=== PATIENT | female | born 1930 | race Caucasian/White ===

== ENCOUNTER 2017-05-21 14:10 | Inpatient (IN) | payer MEDICARE, MEDICAID ==
[~2017-05-21] VITALS: Ht 147.3 cm; Wt 50.8 kg
[~2017-05-21 14:10] MED LIST: ATEN50TA7 PO; CALC-83 PO; DOCU250C7 PO; ERGO400C PO; FES300 PO; GABA600T PO; LEVE500T2 PO; MULT-64 PO; NAPR220T2 PO; PROT40T PO; TRAZ-151 PO; ZESTRIL PO; [UNRECOGNIZED DRUG - CODE] PO
[2017-05-21 14:19] VITALS: BP 170/86; PULSE 71; RESP 24; O2SAT 98
[2017-05-21 15:00] LABS: BASOPHILS % (AUTO) 0.3 % (0-3); EOSINOPHILS % (AUTO) 1.6 % (0-5); MONOCYTES % (AUTO) 10.5 % (4-12); Platelet Count 172 bil/L (150-400)
[2017-05-21] MEDS ORDERED: PYR50 PO (15:30)
[2017-05-21] MEDS ORDERED: OMEP20CA11 PO (15:30)
[2017-05-21] MEDS ORDERED: ATEN25TA PO (15:30)
[2017-05-21] MEDS ORDERED: BIOT10004 PO (15:30)
[2017-05-21] MEDS ORDERED: LOM PO (15:30)
[2017-05-21] MEDS ORDERED: CHOL10008 PO (15:30)
[2017-05-21] MEDS ORDERED: DICL100G26 TOPICAL (15:30)
[2017-05-21] MEDS ORDERED: ATOR20TA PO (15:30)
[2017-05-21] MEDS ORDERED: T2T PO (15:30)
[2017-05-21 15:48] LABS: APPEARANCE,URINE CLEAR (CLEAR,HAZY); COLOR,URINE YELLOW (YELLOW); OCCULT BLOOD,URINE TRACE (NEGATIVE); UROBILINOGEN,URINE NORMAL (NORMAL)
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
[2017-05-21] MEDS ORDERED: Piperacillin-Tazo 3.375 Gm Inj 3.375 GM in Dextrose 5% Minibag Plus 50 ML IV ONE (17:15)
[2017-05-21] MEDS ORDERED: 0.9% Sodium Chloride 1,000 ML IV ONE (17:15)
[2017-05-21] MEDS ORDERED: Polyethylene Glycol (PEG) 17 Gm Powder PO PRN (17:35)
[2017-05-21] MEDS ORDERED: Alum-Mag Hydrox-Simeth 30 mL Suspension PO PRN (17:35)
[2017-05-21] MEDS ORDERED: Ondansetron 2 mg/mL 2 mL Inj IVPUSH PRN (17:35)
[2017-05-21 18:31] LABS: Magnesium 2.1 mg/dL (1.6-2.6)
[2017-05-21 19:30] VITALS: BP 179/93; PULSE 89; RESP 20; O2SAT 98
[2017-05-21 20:17] VITALS: BP 179/93; PULSE 89; RESP 20; O2SAT 98
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
[2017-05-21 20:28] VITALS: BP 185/103; PULSE 87; RESP 18; O2SAT 98
[2017-05-21 20:35] VITALS: PULSE 82
--- NOTE | 2017-05-21 21:26 | NUR ---
Admit note: Pt admitted from the ER via wheelchair. Ambulated to the bed with stand by assist. Alert and able to state "Celeste Timmons" and that birthday is in [birth year]. Any other questions pt states "I want out of here". Refused to put on hospital gown at this time. Continues to refuse IV access, aware. BP elevated, aware and is placing orders. Will hold staffs' hands and ask "Will you stay with me". Call light in reach and bed alarm is on for pt safety. Addendum: 05/21/17 at 2154 by JOSEPH AGUILAR RN Pt does report bilateral ear pain.
[2017-05-21] MEDS ORDERED: Lisinopril 40 Tablet PO SCH (21:30)
[2017-05-21] MEDS ORDERED: levoFLOXacin 750 mg Tablet PO SCH (22:00)
[2017-05-21] MEDS: 0.9% Sodium Chloride 1,000 ML IV SCH (22:36)
[2017-05-22] MEDS ORDERED: Piperacillin-Tazo 3.375 Gm Inj 3.375 GM in Dextrose 5% Minibag Plus 50 ML IV SCH (00:30)
[2017-05-22] MEDS: Heparin 5,000 Unit/mL Inj SUBQ SCH ×3 (00:30→16:04)
[2017-05-22 01:56] VITALS: BP 160/87; PULSE 71; RESP 18; O2SAT 100
[2017-05-22] MEDS: 0.9% Sodium Chloride 1,000 ML IV SCH (03:31)
[2017-05-22] MEDS ORDERED: TRAZ-115 PO (03:52)
[2017-05-22] MEDS ORDERED: LISI40TA PO (03:52)
--- NOTE | 2017-05-22 03:54 | NUR ---
Med Rec: Med rec incomplete. Pt unable to answer questions appropriately, no visitors with pt. This RN did update the expunged Lisinopril and expunged Trazadone as they were recently dispensed to pt, per external medication history.
[2017-05-22 05:49] VITALS: BP 195/66; PULSE 71; RESP 20; O2SAT 95
--- NOTE | 2017-05-22 06:53 | NUR ---
Contacts: RN attempted to call Cassi Sweeney listed under pt's contacts in the chart. Unable to contact her, voice mail for legal office on the number listed.
[2017-05-22 06:56] LABS: BASOPHILS % (AUTO) 0.2 % (0-3); EOSINOPHILS % (AUTO) 1.6 % (0-5); MONOCYTES % (AUTO) 14.4 % (4-12); Mean Corpuscular Hemoglobin 28.7 pg (27.0-35.0); NEUTROPHILS % (AUTO) 70.9 % (40-74); Platelet Count 176 bil/L (150-400)
--- NOTE | 2017-05-22 09:18 | PCM.PNMED ---
Subjective Date of Service May 22, 2017 Subjective Patient was able to answer some questions, denied burning, urinary frequency, urgency denied pain, eating breakfast okay, Exam Vital Signs Vital Sign - Last Date Time Temp Pulse Resp B/P Pulse Ox O2 Delivery O2 Flow Rate FiO2 05/22/17 05:49 37.0 71 20 195/66 95 Room Air Intake and Output 05/21/17 05/21/17 05/22/17 Cumulative From/Thru 15:00 23:00 07:00 05/21/17 19:23 - 05/22/17 05:50 Intake Total 20 ml 50 ml 70 ml Output Total 700 ml 700 ml Balance 20 ml -650 ml -630 ml Intake Oral 20 ml 50 ml 70 ml Output Urine Total 700 ml 700 ml Exam NAD, comfortably laying down on the bed no JVD, MMM, no LAD RRR, nl s1, s2 no mrg CTAB, no w,c S,ND,NT,normoactive BS+ warm, no edema, pulses 2/2 IVs and Medications Medications Reviewed: Medications were reviewed in detail Lab and Diagnostics Result Diagram: 05/22/1735 05/22/17 0635 Microbiology Urine culture pending. Blood cultures 2 pending. . 12-lead ECG EKG: Sinus rhythm, heart rate 79, normal axis, normal intervals, normal R-wave progression multiple PVCs, peaked T waves in leads V2 through V4, no pathological Q waves or acute ischemic changes such as ST elevation or depression. . Assessment & Plan Celeste Del Rosario is an 87-year-old female with a past medical history significant for dementia and seizure disorder who presented to [facility] emergency Department via police with confusion onset prior to arrival. 1. Acute urinary tract infection, present on admission. Active. UA strongly positive for UTI, presented with acute delirium secondary to UTI.UCX prelim grew GNR. started on Zosyn ED, switched to Levaquin, -continue levaquin for now, -awaits final culture 2.acute encephalopathy, likely secondary to UTI, underlying cognitive dysfunction, present on admission. Active. -improving as infection clears up - Unclear patient's baseline but there is a history of dementia. - Treat underlying cause. Chronic problems: 3. Developmentally delayed with dementia, present on admission. Stable. - Unclear patient's baseline functional level. - Continue to treat UTI as above. 4. Hypertension, present on admission. Stable. - Continue lisinopril 40 mg daily and atenolol 25 mg daily once medications have been verified. 5. GERD, present on admission. Stable. - Continue omeprazole 20 mg daily once medications have been verified. 6. Insomnia, present on admission. Stable. - Continue trazodone 50 mg daily at bedtime once medications have been verified. 7. Hyperlipidemia, present on admission. Stable. - Continue atorvastatin 20 mg daily at bedtime once medications have been verified. PRN antiemetics: Zofran and Maalox. PRN bowel regimen: Senna and MiraLAX. PRN analgesics: Tylenol. dispo: given patient's presumed poor baseline, likely need more support, 20/03 awaits PT eval as well VTE Prophylaxis: Sub-Q Heparin (Unfractionated) Resuscitation Status: CPR: Attempt Resuscitation Time spent 35min Cele Ruiz MD May 22, 2017 09:11
[2017-05-22] MEDS ORDERED: CALC-243 PO (12:17)
[2017-05-22] MEDS ORDERED: MULT-1018 PO (12:19)
[2017-05-22] MEDS ORDERED: Haloperidol 5 mg/mL Inj IV PRN (13:30)
[2017-05-22] MEDS ORDERED: Haloperidol 5 mg/mL Inj IVPUSH ONE (13:30)
[2017-05-22] MEDS: Pantoprazole 20 mg ER24 Tablet PO SCH (13:36)
[2017-05-22] MEDS: Calcium Carbonate (Oyster Shell) 500 mg Tablet PO SCH (13:36)
--- NOTE | 2017-05-22 14:04 | NUR ---
Haldol Patient alert to self, but not place or time. Patient stated she was leaving and was already dressed and putting on shoes. Nurse explained to patient she needed to stay at the hospital for antibiotics to get a little better before she can go home. Patient continued placing on her shoes and stating she was going to walk home. Charge nurse notified, service crew supervisor was called for a sitter with no response, and MD notified. MD ordered one time dose of IM Haldol. Patient was administered medication and called down and stated she would stay another day.
--- NOTE | 2017-05-22 14:58 | NUR ---
Social Work-initial assessment: Data:See initial assessment. Pt is a 87 y/o female who was admitted on 05/21/17 for acute delirium per H&P. Pt's insurance is [employer] and [employer] and PCP is KEITH Tai. EMR reviewed. SW attempted to meet with pt, but pt hard of hearing and unable to understand SW's questions. SW spoke with pt's CM Milka Mendez at [facility], updated clinicals faxed. Milka confirms pt has a caregiver Anju [phone] 69 hours a month. Pt lives alone and is independent at baseline. Pt has developmental delay and her guardian is Cassi Gleason, , SW left message for her. Pt does not drive and does not use any DME at baseline. Pt has no HH or SNF history. Pt has no termite treater care insurance or VA benefits. MD likely to order PT for tomorrow. SW provided pt with discharge planning checklist and encouraged a copy to be brought in. Anticipate pt's caregiver to provide transport home. SW will continue to follow. Assessment:Pt who is independent at baseline. Plan:Pt to discharge home when medically stable via POV. Pt to continue with [facility] caregiving at home. SW will continue to follow for needs. CHUN Scott Addendum: 05/22/17 at 1502 by CINDY TAYLOR SS Amended: Links added.
[2017-05-22 19:27] VITALS: BP 149/79; PULSE 63; RESP 18; O2SAT 97
[2017-05-23 00:05] VITALS: BP 131/75; PULSE 70; RESP 15; O2SAT 94
[2017-05-23] MEDS: Heparin 5,000 Unit/mL Inj SUBQ SCH ×3 (01:34→17:18)
[2017-05-23 03:49] VITALS: BP 138/78; PULSE 75; RESP 16; O2SAT 96
--- NOTE | 2017-05-23 05:08 | NUR ---
Abdominal pain, Activity: Pt reported abdominal discomfort x1, Tylenol was effective. Vic alarm remains activated for pt's safety. Up to the bathroom a couple times through the night, directable back to bed each time. Able to get a bit more sleep tonight.
[2017-05-23] MEDS: Pantoprazole 20 mg ER24 Tablet PO SCH (08:07)
[2017-05-23] MEDS: Calcium Carbonate (Oyster Shell) 500 mg Tablet PO SCH (08:08)
[2017-05-23] MEDS ORDERED: levoFLOXacin 750 mg Tablet PO SCH (08:30)
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
[2017-05-23 12:36] VITALS: BP 98/67; PULSE 55; RESP 18; O2SAT 99
[2017-05-23] MEDS: Amoxicillin-Clav 500-125 mg Tablet PO SCH (17:18)
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
[2017-05-23 20:29] VITALS: BP 119/69; PULSE 59; RESP 16; O2SAT 94
[2017-05-24 03:33] VITALS: BP 144/68; PULSE 57; RESP 16; O2SAT 93
[2017-05-24] MEDS: Amoxicillin-Clav 500-125 mg Tablet PO SCH ×2 (08:17→12:09)
[2017-05-24] MEDS: Pantoprazole 20 mg ER24 Tablet PO SCH (08:17)
[2017-05-24] MEDS: Heparin 5,000 Unit/mL Inj SUBQ SCH ×2 (08:18→08:33)
[2017-05-24 08:21] VITALS: BP 122/68; PULSE 57; RESP 16; O2SAT 96
[2017-05-24] MEDS: Calcium Carbonate (Oyster Shell) 500 mg Tablet PO SCH (08:30)
[2017-05-24] MEDS ORDERED: AMOX1TAB11 PO (10:13)
--- NOTE | 2017-05-24 11:19 | NUR ---
Social Work-readiness for discharge/multidisciplinary rounds : Data:EMR reviewed. Pt is on day 3 of hospitalization for UTI per H&P. Pt is medically stable for discharge later today or tomorrow. confirms pt's delirium was caused by UTI that has been treated. PT has worked with pt and recommended SNF vs home with HH and fww. order received for HH services. SW attempted to speak with pt, pt has DD, SW placed a call to caregiver Anju [phone]. Anju states she was in this morning and feels like pt is back to her baseline. Anju states they have a good system at home. SW discussed the need for HH and fww. Anju informed SW that pt has used Fww in the past and then threw it in the trash. Anju states she has a fww she can bring over for pt to use at home. Anju feels like HH would be good, but would like SW to speak with Pt's filenet p8 developer Cassi [phone]. GRETEL spoke with Cassi who confirms that she is fine with HH, no agency preference. GRETEL referred to the rotating calendar and made referral to [facility] for RN and PT, access given. Cassi aware that pt will likely be discharging today. Anju confirms she will provide transport home at discharge. F2F to be completed by . GRETEL will continue to follow. Assessment:Pt who has caregivers. Plan:Pt to discharge home when medically stable via POV. Pt to continue with Caregiver support at home. Caregiver to bring fww for pt to use. order received for HH, Referral made to [facility] for RN and Pt. F2F to be completed by . GRETEL will continue to follow. Selina Gonzalez MSW
--- NOTE | 2017-05-24 12:07 | PCM.DIMED ---
Discharge Instructions Date of Service May 24, 2017 Dates of Hospitalization May 21, 2017 at 17:57 Discharge Diagnosis Discharge Diagnosis acute dx presumed pyelonephritis, due to E.coli acute encephalopathy, likely multifactorial: acute infection with UTI, underlying cognitive dysfunction/developmental delay, chronic dx Developmentally delayed with dementia,. Hypertension, present on admission GERD Insomnia Hyperlipidemia Diet Discharge Diet: No restrictions Activity Discharge Activity: No restrictions Call your provider Call your provider for: Fever or Chills Patient Instructions Patient Instructions You were hospitalized with possible confusion, likely from urinary tract infection. You were treated with antibiotics, recovered well. Please note that You are arranged for HH, RN, PT given your weakness Please continue to take antibiotics, Augmentin three times per day. Please follow up with your primary doctor in one week Follow-up Provider: [facility] Follow-up with PCP in: 1 week Cele Ruiz MD May 24, 2017 12:07
--- NOTE | 2017-05-24 13:29 | NUR ---
Social Work-discharge: Data:EMR reviewed. Pt is on day 3 of hospitalization for UTI per H&P. Pt is medically stable for discharge. has cleared pt for home with HH. GRETEL informed Ian Us with [facility] of discharge and provided him with F2F and orders for RN and PT. GRETEL updated pt's caregiver Anju and she is agreeable to plan. Pt's implementation technician Cassi also aware pt is discharging home today. Anju has fww pt can use at home. All updated and agreeable to plan. Assessment:Pt to benefit from HH and [facility]. Plan:Pt to discharge home today via POV. Pt to continue with caregiving at home. F2F and orders have been provided to [facility] for RN and PT. All updated and agreeable to plan. Selina Gonzalez MSW
--- NOTE | 2017-05-24 13:50 | NUR ---
Discharge nursing Note: Patient was discharged to home at 1350. Patients IV was removed intact .All of patients discharge information was reviewed with her and her questions were answered to her satisfaction. Patient was brought to the hospital lobby in a wheelchair by nursing staff member and she was driven to home by her caregiver.
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
== END 2017-05-24 13:39 | disposition home health service (06) | DRG 689 ==
LOC: SED 14:10 → MPC 17:57
PROVIDERS: ADMIT Internal Medicine; ATTEND Internal Medicine
DX: N12 Tubulo-interstitial nephritis, not specified as acute or chronic (principal); G93.40 Encephalopathy, unspecified; I10 Essential (primary) hypertension; E78.5 Hyperlipidemia, unspecified; G89.29 Other chronic pain; M79.604 Pain in right leg; K21.9 Gastro-esophageal reflux disease without esophagitis; F03.90 Unspecified dementia, unspecified severity, without behavioral disturbance, psychotic disturbance, mood disturbance, and anxiety; G47.00 Insomnia, unspecified; B96.20 Unspecified Escherichia coli [E. coli] as the cause of diseases classified elsewhere